=== PATIENT | female | born 1950 | race Caucasian/White ===

== ENCOUNTER 2019-06-09 22:48 | Emergency (ER) | payer MEDICARE, OTHER ==
[2019-06-09 23:00] VITALS: TEMP 98.2; BMI 24.2
--- NOTE | 2019-06-10 00:35 | PDOC ---
History of Present Illness - General Chief Complaint: Chest Pain Stated Complaint: CHEST PAIN/SOB Time Seen by Provider: 06/10/19 00:35 - History of Present Illness Initial Comments: HPI: 69yo F with PMH of HTN, HLD presenting with chest pain and L. eye twitching x 5 days. Patient presents tonight because she feels that her chest pain has worsened and has been occurring more frequently. The pain is descrbed as a "pressure" and rated 7/10. It occurs one or two minutes at a time. It is non- radiating and not associated with nausea, vomiting, or diaphoresis. Denies correlation with exertion. Nothing makes the pain better or worse. Mother of heart attack at age 81. Lifetime nonsmoker. No hemoptysis, no recent surgical history, no recent immobilization, no hormone use, no history of DVT or PE. Reports that her left eye will twitch intermittently. No headache or focal weakness. Denies fever and chills. PCP: Dr. Van ROS: Constitutional: no fever, no chills HEENT: no throat pain, +L. eye twitching Cardiovascular: +chest pain, no palpitations Respiratory: no cough, no shortness of breath Gastrointestinal: no abdominal pain, no nausea Genitourinary: no dysuria, no hematuria Musculoskeletal: no myalgia, no arthralgia Skin: no rash, no itching Neurologic: no headache, no weakness PE: General: Awake, alert, and fully oriented, in no acute distress Head: No signs of trauma Eyes: EOMI, sclera anicteric ENT: Moist mucus membranes Neck: Normal ROM, supple Lungs: Lungs clear, Normal breath sounds Cardio: Regular rhythm, S1 and S2 present Abdomen: Soft, nontender. No guarding, no rebound, no masses Extremities: Normal range of motion, Distal pulses present, No calf tenderness SKIN: Warm, Dry, normal turgor Neurologic: Cranial nerves II through XII grossly intact. Normal speech ED Course/MDM: DDX including but not limited to ACS, PE, PNA, anemia, metabolic derangement Labs, EKG, CXR 06/10/19 00:35 EKG: rate 73, QTc 458, sinus with first degree AV block CBC WBC 9.3 K/mm3 (4.0-10.0) 06/10/19 01:22 RBC 4.43 M/mm3 (3.60-5.2) 06/10/19 01:22 Hgb 12.2 GM/dL (10.7-15.3) 06/10/19 01:22 Hct 37.0 % (32.4-45.2) 06/10/19 01:22 MCV 83.5 fl (80-96) 06/10/19 01:22 MCH 27.4 pg (25.7-33.7) 06/10/19 01:22 MCHC 32.8 g/dl (32.0-36.0) 06/10/19 01:22 RDW 13.3 % (11.6-15.6) 06/10/19 01:22 Plt Count 270 K/MM3 (134-434) 06/10/19 01:22 MPV 9.7 fl (7.5-11.1) 06/10/19 01:22 Absolute Neuts (auto) 4.4 K/mm3 (1.5-8.0) 06/10/19 01:22 Neutrophils % 47.9 % (42.8-82.8) 06/10/19 01:22 Lymphocytes % 38.4 % (8-40) 06/10/19 01:22 Monocytes % 11.0 % (3.8-10.2) H 06/10/19 01:22 Eosinophils % 1.8 % (0-4.5) 06/10/19 01:22 Basophils % 0.9 % (0-2.0) 06/10/19 01:22 Nucleated RBC % 0 % (0-0) 06/10/19 01:22 No leukocytosis or anemia CMP Sodium 134 mmol/L (136-145) L 06/10/19 01:22 Potassium 4.0 mmol/L (3.5-5.1) 06/10/19 01:22 Chloride 101 mmol/L (98-107) 06/10/19 01:22 Carbon Dioxide 27 mmol/L (21-32) 06/10/19 01:22 Anion Gap 6 MMOL/L (8-16) L 06/10/19 01:22 BUN 10.2 mg/dL (7-18) 06/10/19 01:22 Creatinine 1.1 mg/dL (0.55-1.3) 06/10/19 01:22 Est GFR (CKD-EPI)AfAm 59.74 06/10/19 01:22 Est GFR (CKD-EPI)NonAf 51.55 06/10/19 01:22 Random Glucose 92 mg/dL (74-106) 06/10/19 01:22 Calcium 9.4 mg/dL (8.5-10.1) 06/10/19 01:22 Total Bilirubin 0.3 mg/dL (0.2-1) 06/10/19 01:22 AST 27 U/L (15-37) 06/10/19 01:22 ALT 31 U/L (13-61) 06/10/19 01:22 Alkaline Phosphatase 83 U/L (45-117) 06/10/19 01:22 Creatine Kinase 172 U/L (26-192) 06/10/19 01:22 Creatine Kinase Index No Result Required. 06/10/19 01:22 CK-MB (CK-2) < 1.0 ng/mL (0.5-3.6) 06/10/19 01:22 Troponin I < 0.02 ng/ml (0.00-0.05) 06/10/19 01:22 Total Protein 8.0 g/dl (6.4-8.2) 06/10/19 01:22 Albumin 4.3 g/dl (3.4-5.0) 06/10/19 01:22 Electrolytes unremarkable Tpn undetectable 06/10/19 02:56 CXR without acute pathology, my impression Patient safe for discharge HEART score of 3 To follow up with primary care physician Already has referral to cardiology and ophthalmology Return precautions To be discharged 06/10/19 03:07 Past History - Past Medical History Allergies/Adverse Reactions: Allergies Allergy/AdvReac Type Severity Reaction Status Date / Time No Known Allergies Allergy Verified 06/09/19 23:00 COPD: No HTN: Yes Hypercholesterolemia: Yes - Psycho Social/Smoking Cessation Hx Smoking History: Never smoked *Physical Exam - Vital Signs Last Vital Signs Temp Pulse Resp BP Pulse Ox 98.2 F 60 18 160/83 99 06/09/19 22:57 06/09/19 22:57 06/09/19 22:57 06/09/19 22:57 06/09/19 22:57 ED Treatment Course - LABORATORY CBC & Chemistry Diagram: 06/10/19 01:22 06/10/19 01:22 Discharge - Discharge Information Problems reviewed: Yes Clinical Impression/Diagnosis: Chest pain Qualifiers: Chest pain type: unspecified Qualified Code(s): R07.9 - Chest pain, unspecified Condition: Stable Disposition: HOME - Follow up/Referral Referrals: Ree Van MD [Primary Care Provider] - - Patient Discharge Instructions Patient Printed Discharge Instructions: DI for Atypical Chest Pain Additional Instructions: You came into the emergency department for chest pain and eye twitching. We performed blood work, an EKG, and an Xray which were within normal limits. Follow-up with your primary care physician in the next 2-3 days to discuss this ED visit and to further evaluate your chest pain. Call and make an appointment in the morning. Your workup is not complete until you do so. Call for emergency medicine services or go to the emergency room right away if you have symptoms of a heart attack, including: Chest pain, which may feel like a crushing weight A sense of fullness, squeezing, or pressure in the chest Rapid, irregular heartbeat Pain, tingling or numbness in the left shoulder and arm, the neck or jaw, or the right arm Sweating Nausea or vomiting Lightheadedness, weakness, or fainting Shortness of breath If you think you have an emergency, call for medical help right away. === Llegaste al departamento de emergencias por dolor en el pecho y espasmos oculares. Realizamos anlisis de elly, un electrocardiograma y mio radiografa que estaban dentro de los lmites normales. Whit un seguimiento con alvarado mdico de atencin primaria en los prximos 2-3 candelaria para analizar esta visita al servicio de urgencias y evaluar ms a fondo alvarado dolor de pecho. Llame y whit mio nehal por la maana. Alvarado trabajo no est completo hasta que lo whit. Llame a los servicios de medicina de emergencia o vaya a la angeline de emergencias de inmediato si tiene sntomas de un ataque cardaco, que incluyen: Dolor en el pecho, que puede sentirse lottie un peso aplastante. Mio sensacin de plenitud, presin o presin en el pecho. Latidos cardacos rpidos e irregulares Dolor, hormigueo o entumecimiento en el hombro y brazo izquierdos, el christophe o la mandbula, o el brazo derecho Transpiracin Nuseas o vmitos Mareos, debilidad o desmayos. Falta de aliento Si wendy que tiene mio emergencia, solicite ayuda mdica de inmediato. Print Language: ANDORRAN - Post Discharge Activity Work/Back to School Note: Parent(s) Back to Work Note
--- NOTE | 2019-06-10 00:37 | PDOC ---
Attending Attestation - Resident Resident Name: Beatriz Bernal - ED Attending Attestation I have performed the following: I have examined & evaluated the patient, The case was reviewed & discussed with the resident, I agree w/resident's findings & plan - HPI HPI: 06/10/19 03:08 Pt comes with a week of chest pain. Pt is also nervous because her left eyelid has been twitching. - Physicial Exam PE: 06/10/19 03:09 Normal exam. Heart normal lungs normal abd soft NT ND no flank pain No pitting edema Pt looks great Afebrile HEENT normal - Medical Decision Making 06/10/19 02:50 NSR; labs normal; exam normal 06/10/19 03:10 CXR normal pt feels great She has been reassured She has no EKG changes
[2019-06-10 01:43] LABS: BASO % 0.9 % (0-2.0); EOS % 1.8 % (0-4.5); HEMOGLOBIN 12.2 GM/dL (10.7-15.3); LYMPH % 38.4 % (8-40); MCH 27.4 pg (25.7-33.7); MCHC 32.8 g/dl (32.0-36.0); MEAN CELL VOLUME 83.5 fl (80-96); MEAN PLT VOLUME 9.7 fl (7.5-11.1); NEUT % 47.9 % (42.8-82.8); PLATELET COUNT 270 K/MM3 (134-434); RBC 4.43 M/mm3 (3.60-5.2); RDW 13.3 % (11.6-15.6); WHITE BLOOD COUNT 9.3 K/mm3 (4.0-10.0)
[2019-06-10 01:56] LABS: INR 1.01 (0.83-1.09); PROTHROMBIN TIME (PATIENT) 11.9 SEC (9.7-13.0)
[2019-06-10 01:59] LABS: ACTIVATED PTT 36.3 SECONDS (25.2-36.5)
[2019-06-10 02:13] LABS: ALBUMIN 4.3 g/dl (3.4-5.0); BILIRUBIN,TOTAL 0.3 mg/dL (0.2-1); BLOOD UREA NITROGEN 10.2 mg/dL (7-18); CALCIUM 9.4 mg/dL (8.5-10.1); CREATININE 1.1 mg/dL (0.55-1.3)
[2019-06-10 03:26] VITALS: BP 130/68; PULSE 68
--- NOTE | 2019-06-10 15:57 | EKG ---
Test Reason : Blood Pressure : / mmHG Vent. Rate : 072 BPM Atrial Rate : 072 BPM P-R Int : 232 ms QRS Dur : 080 ms QT Int : 406 ms P-R-T Axes : 063 014 025 degrees QTc Int : 444 ms SINUS RHYTHM WITH 1ST DEGREE A-V BLOCK WITH PREMATURE ATRIAL COMPLEXES OTHERWISE NORMAL ECG NO PREVIOUS ECGS AVAILABLE Confirmed by AMOS KLINE MD ([id number]) on 06/10/2019 3:57:04 PM Referred By: Confirmed By:AMOS KLINE MD
--- NOTE | 2019-08-09 10:53 | EKG ---
Test Reason : Blood Pressure : / mmHG Vent. Rate : 073 BPM Atrial Rate : 073 BPM P-R Int : 212 ms QRS Dur : 082 ms QT Int : 416 ms P-R-T Axes : 064 011 040 degrees QTc Int : 458 ms POOR DATA QUALITY, INTERPRETATION MAY BE ADVERSELY AFFECTED SINUS RHYTHM WITH 1ST DEGREE A-V BLOCK OTHERWISE NORMAL ECG WHEN COMPARED WITH ECG OF 09-JUN-2019 23:10, PREMATURE ATRIAL COMPLEXES ARE NO LONGER PRESENT Confirmed by IVÁN ENCISO MD ([id number]) on 06/12/2019 3:56:10 PM Also confirmed by IVÁN ENCISO MD ([id number]), publications editor ANGLE KLINE ([id number]) on 08/09/2019 10:53:09 AM Referred By: Confirmed By:IVÁN ENCISO MD
== END 2019-06-10 03:27 | disposition home or self-care (01) ==
LOC: JER 22:48
DX: R07.9 Chest pain, unspecified (principal); I10 Essential (primary) hypertension; E78.5 Hyperlipidemia, unspecified; E78.00 Pure hypercholesterolemia, unspecified
CPT/HCPCS: 36415; 71046-TC-FY; 80053; 82550; 82553; 84484; 85025; 85610; 85730; 93005; 93010; 99283-25